=== PATIENT | male | born 1955 | race Native Hawaiian/Other Pacific Islander ===

== ENCOUNTER 2016-11-16 07:50 | Outpatient (CLI) | payer BC | END 2016-11-16 19:44 | disposition home or self-care (01) | LOC: RESP 07:50 | DX: R06.02 Shortness of breath (principal) | CPT/HCPCS: 94640; 94664 ==

== ENCOUNTER 2018-06-04 14:29 | Outpatient (CLI) | payer BC | END 2018-06-04 22:14 | disposition home or self-care (01) | LOC: CT 14:29 | DX: Z12.2 Encounter for screening for malignant neoplasm of respiratory organs (principal); Z87.891 Personal history of nicotine dependence ==

== ENCOUNTER 2019-01-14 12:38 | Outpatient (CLI) | payer BC | END 2019-01-14 22:33 | disposition home or self-care (01) | LOC: RESP 12:38 | DX: Z87.891 Personal history of nicotine dependence (principal); J44.9 Chronic obstructive pulmonary disease, unspecified; I27.81 Cor pulmonale (chronic) | CPT/HCPCS: 93306 ==

== ENCOUNTER 2019-04-10 13:44 | Outpatient (CLI) | payer BC | END 2019-04-10 20:47 | disposition home or self-care (01) | LOC: CT 13:44 | DX: R91.1 Solitary pulmonary nodule (principal) ==

== ENCOUNTER 2020-04-07 13:21 | Outpatient (CLI) | payer OTHER, BC | END 2020-04-07 22:27 | disposition home or self-care (01) | LOC: CT 13:21 | DX: R91.1 Solitary pulmonary nodule (principal); Z87.891 Personal history of nicotine dependence; J44.9 Chronic obstructive pulmonary disease, unspecified ==

== ENCOUNTER 2020-11-29 11:04 | Outpatient (CLI) | payer OTHER, BC | END 2020-11-29 21:47 | disposition home or self-care (01) | LOC: CT 11:04 | PROVIDERS: ATTEND Internal Medicine | DX: Z87.442 Personal history of urinary calculi (principal); R10.84 Generalized abdominal pain; M54.89 Other dorsalgia ==

== ENCOUNTER 2021-01-20 12:13 | Outpatient (CLI) | payer OTHER, BC ==
[2021-01-20 13:28] LABS: PLATELET COUNT 160 K/uL (142-355)
[2021-01-20 14:07] LABS: POTASSIUM 3.8 mmol/L (3.6-5.2)
== END 2021-01-20 22:06 | disposition home or self-care (01) ==
LOC: LABW 12:13
PROVIDERS: ATTEND Internal Medicine
DX: U07.1 COVID-19 (principal); R79.89 Other specified abnormal findings of blood chemistry
CPT/HCPCS: 36415; 80053; 82728; 83880; 85027; 85379; 86140

== ENCOUNTER 2021-04-18 13:59 | Outpatient (CLI) | payer OTHER, BC | END 2021-04-18 19:13 | disposition home or self-care (01) | LOC: CT 13:59 | PROVIDERS: ATTEND Internal Medicine Sleep Medicine | DX: J44.9 Chronic obstructive pulmonary disease, unspecified (principal) ==

== ENCOUNTER 2021-04-20 14:01 | Outpatient (CLI) | payer OTHER, BC | END 2021-04-20 19:19 | disposition home or self-care (01) | LOC: RAD 14:01 | PROVIDERS: ATTEND Internal Medicine | DX: M25.561 Pain in right knee (principal) ==

== ENCOUNTER 2022-04-06 09:18 | Outpatient (CLI) | payer OTHER, BC | END 2022-04-06 19:38 | disposition home or self-care (01) | LOC: RESP 09:18 | PROVIDERS: ATTEND Nurse Practitioner Family | DX: J44.9 Chronic obstructive pulmonary disease, unspecified (principal) ==

== ENCOUNTER 2022-04-12 15:16 | Outpatient (CLI) | payer OTHER, BC | END 2022-04-12 21:22 | disposition home or self-care (01) | LOC: CT 15:16 | PROVIDERS: ATTEND Nurse Practitioner Family | DX: Z09 Encounter for follow-up examination after completed treatment for conditions other than malignant neoplasm (principal); Z87.891 Personal history of nicotine dependence ==

== ENCOUNTER 2022-08-29 15:14 | Outpatient (CLI) | payer OTHER, BC | END 2022-08-29 21:26 | disposition home or self-care (01) | LOC: RAD 15:14 | PROVIDERS: ATTEND Internal Medicine | DX: M46.1 Sacroiliitis, not elsewhere classified (principal); M54.59 Other low back pain ==

== ENCOUNTER 2022-09-28 14:41 | Outpatient (CLI) | payer OTHER, BC | END 2022-09-28 19:09 | disposition home or self-care (01) | LOC: LABW 14:41 | PROVIDERS: ATTEND Podiatrist | DX: B35.1 Tinea unguium (principal) | CPT/HCPCS: 36415; 84450; 84460 ==

== ENCOUNTER 2022-11-21 13:30 | Outpatient (CLI) | payer OTHER, BC | END 2022-11-21 21:59 | LOC: MRI 13:30 | PROVIDERS: ATTEND Internal Medicine | DX: M53.3 Sacrococcygeal disorders, not elsewhere classified (principal); M46.1 Sacroiliitis, not elsewhere classified; Z98.890 Other specified postprocedural states | CPT/HCPCS: 36415; 82565; 84520; A9576 ==